=== PATIENT | male | born 1980 | race Hispanic/Latino ===

== ENCOUNTER 2017-05-11 03:48 | Emergency (ER) | payer BC ==
[~2017-05-11] VITALS: Ht 185.4 cm; Wt 144.2 kg
[~2017-05-11 03:48] MED LIST: ASPIRIN325 MG PO; LISINOPRIL10 MG PO; METFORMIN HCL500 MG PO
[2017-05-11] MEDS ORDERED: ONDANSETRON HCL INJ 2 MG/ML VIAL IV STA (04:03)
[2017-05-11 04:14] LABS: BASOPHILS # (AUTO) 0.1 (0.0-0.1); BASOPHILS % 1.3 % (0.0-1.0); EOSINOPHILS # (AUTO) 0.1 (0.0-0.4); EOSINOPHILS % 0.8 % (0.0-6.0); HEMATOCRIT 43.2 % (38.2-49.6); HEMOGLOBIN 15.2 g/dL (14.0-18.0); LYMPHOCYTES # (AUTO) 5.2 (1.0-3.2); LYMPHOCYTES % 48.9 % (18.0-39.1); MEAN CORPUSCULAR HEMOGLOBIN 29.9 pg (28-32); MEAN CORPUSCULAR HGB CONC 35.2 g/dL (31-35); MEAN CORPUSCULAR VOLUME 84.9 fL (81-99); MONOCYTES # (AUTO) 0.6 (0.2-0.8); MONOCYTES % 5.6 % (4.4-11.3); NEUTROPHILS # (AUTO) 4.6 (2.1-6.9); NEUTROPHILS % 43.1 % (38.7-80.0); PLATELET COUNT 168 x10e3/uL (140-360); RED BLOOD COUNT 5.09 x10e6/uL (4.3-5.7); RED CELL DISTRIBUTION WIDTH 13.9 % (11.7-14.4)
[2017-05-11] MEDS ORDERED: SODIUM CHLORIDE 0.9% 1000ML 1,000 ML IV ONE ×2 (04:15→06:00)
[2017-05-11] MEDS ORDERED: ACETAMINOPHEN 325 MG TAB PO ONE (04:15)
[2017-05-11 04:27] LABS: EOSINOPHILS % (MANUAL) 1 % (0-7); LYMPHOCYTES % (MANUAL) 45 % (19-48); MONOCYTES % (MANUAL) 4 % (3.4-9.0); NEUTROPHILS % (MANUAL) 50 % (40-74); PLATELET ESTIMATE ADEQUATE; PLATELET MORPHOLOGY COMMENT NORMAL; RBC MORPHOLOGY COMMENT NORMAL
[2017-05-11 04:33] LABS: ALANINE AMINOTRANSFERASE 61 IU/L (0-55); ALBUMIN 3.3 g/dL (3.5-5.0); ALBUMIN/GLOBULIN RATIO 0.8 (0.8-2.0); ALKALINE PHOSPHATASE 97 IU/L (40-150); ANION GAP 13.3 mmol/L (8-16); BLOOD UREA NITROGEN 11 mg/dL (7-26); BUN/CREATININE RATIO 9 (6-25); CALCIUM 8.4 mg/dL (8.4-10.2); CARBON DIOXIDE 20 mmol/L (22-29); CHLORIDE 101 mmol/L (98-107); EST GLOMERULAR FILTRATION RATE > 60 ML/MIN (60-); GLUCOSE 287 mg/dL (74-118); POTASSIUM 4.3 mmol/L (3.5-5.1); SODIUM 130 mmol/L (136-145)
[2017-05-11 04:42] LABS: KETONES,URINE NEGATIVE (NEGATIVE); LEUKOCYTE ESTERASE ,URINE TRACE (NEGATIVE); NITRITE,URINE NEGATIVE (NEGATIVE); URINE UROBILINOGEN 0.2 mg/dL (0.2 - 1)
[2017-05-11 04:43] LABS: BILIRUBIN,URINE 1+ (NEGATIVE); CLARITY,URINE CLEAR (CLEAR); COLOR,URINE AMBER (YELLOW); PROTEIN,URINE DIPSTICK 1+ (NEGATIVE)
[2017-05-11 04:51] LABS: BACTERIA,URINE FEW /HPF; EPITHELIAL CELLS,URINE FEW /LPF; RBC,URINE 0-5 /HPF (0-5)
--- NOTE | 2017-05-11 04:54 | Diagnostic Imaging Report ---
CHEST 2 VIEWS, Technique: CHEST 2 VIEWS Comparison: None Clinical history: Fever DISCUSSION: Unremarkable appearance of the heart, mediastinum, lungs and pleural spaces. IMPRESSION: No acute abnormality. Signed by: Dr Mikki Faulkner MD on 05/11/2017 4:51 AM
== END 2017-05-11 07:15 | disposition home or self-care (01) ==
LOC: ER 03:48
DX: R50.9 Fever, unspecified (principal); R05 Cough; R11.2 Nausea with vomiting, unspecified; J00 Acute nasopharyngitis [common cold]; N30.00 Acute cystitis without hematuria; Z86.73 Personal history of transient ischemic attack (TIA), and cerebral infarction without residual deficits; Z87.01 Personal history of pneumonia (recurrent)
CPT/HCPCS: 36415; 71020; 80053; 81001; 85025; 87400; 99284; J2405; J7030

== ENCOUNTER 2021-12-27 09:46 | Inpatient (IN) | payer BC ==
[~2021-12-27] VITALS: Ht 185.4 cm; Wt 131.5 kg
[2021-12-27] MEDS ORDERED: SODIUM CHLORIDE 0.9% 1000ML 1,000 ML IV STA (09:54)
[2021-12-27 10:05] LABS: BASOPHILS % 0.4 % (0.0-1.0); EOSINOPHILS # (AUTO) 0.2 (0.0-0.4); EOSINOPHILS % 1.9 % (0.0-6.0); HEMATOCRIT 42.9 % (38.2-49.6); HEMOGLOBIN 14.8 g/dL (14.0-18.0); LYMPHOCYTES # (AUTO) 2.3 (1.0-3.2); LYMPHOCYTES % 24.3 % (18.0-39.1); MEAN CORPUSCULAR HEMOGLOBIN 29.2 pg (28-32); MEAN CORPUSCULAR HGB CONC 34.5 g/dL (31-35); MEAN CORPUSCULAR VOLUME 84.8 fL (81-99); MONOCYTES # (AUTO) 0.6 (0.2-0.8); MONOCYTES % 5.9 % (4.4-11.3); NEUTROPHILS # (AUTO) 6.4 (2.1-6.9); NEUTROPHILS % 67.3 % (38.7-80.0); PLATELET COUNT 239 x10e3/uL (140-360); RED BLOOD COUNT 5.06 x10e6/uL (4.3-5.7); RED CELL DISTRIBUTION WIDTH 13.2 % (11.7-14.4)
[2021-12-27 10:17] LABS: ALANINE AMINOTRANSFERASE 49 IU/L (0-55); ALBUMIN 3.8 g/dL (3.5-5.0); ALBUMIN/GLOBULIN RATIO 0.8 (0.8-2.0); ALKALINE PHOSPHATASE 136 IU/L (40-150); ANION GAP 14.9 mmol/L (8-16); BLOOD UREA NITROGEN 51 mg/dL (7-26); BUN/CREATININE RATIO 14 (6-25); CALCIUM 9.7 mg/dL (8.4-10.2); CARBON DIOXIDE 19 mmol/L (22-29); CHLORIDE 103 mmol/L (98-107); CREATINE KINASE 133 IU/L (30-200); MAGNESIUM 1.8 MG/DL (1.3-2.1); POTASSIUM 4.9 mmol/L (3.5-5.1); SODIUM 132 mmol/L (136-145)
[2021-12-27 10:20] LABS: GLUCOSE 407 mg/dL (74-118)
[2021-12-27 10:23] LABS: INR 0.85; PROTHROMBIN TIME 12.4 seconds (11.9-14.5)
[2021-12-27 10:24] LABS: PARTIAL THROMBOPLASTIN TIME 27.3 seconds (23.8-35.5)
[2021-12-27] MEDS ORDERED: INSULIN LISPRO 100 UNIT/1 ML 3ML VIAL SQ ONE (10:45)
[2021-12-27 11:31] LABS: COLOR,URINE YELLOW (YELLOW)
[2021-12-27 11:32] LABS: CLARITY,URINE CLEAR (CLEAR); KETONES,URINE NEGATIVE (NEGATIVE); LEUKOCYTE ESTERASE ,URINE NEGATIVE (NEGATIVE); NITRITE,URINE NEGATIVE (NEGATIVE); PROTEIN,URINE DIPSTICK NEGATIVE (NEGATIVE); URINE UROBILINOGEN 0.2 mg/dL (0.2 - 1)
[2021-12-27] MEDS ORDERED: ASPIRIN 81 MG CHEW TAB PO STA (11:43)
[2021-12-27] MEDS ORDERED: ONDANSETRON HCL INJ 2MG/ML 2ML 2 MG/ML VIAL IV PRN (11:45)
[2021-12-27] MEDS ORDERED: DEXTROSE 50% SYRINGE 50 ML IV PRN (11:45)
[2021-12-27 11:55] LABS: EPITHELIAL CELLS,URINE FEW /LPF
[2021-12-27 11:56] LABS: RBC,URINE 0-5 /HPF (0-5); WBC,URINE (MAN) 0-5 /HPF (0-5)
[2021-12-27 11:57] LABS: BACTERIA,URINE MODERATE /HPF
[2021-12-27] MEDS: INSULIN LISPRO 100 UNIT/1 ML 3ML VIAL SQ SCH ×3 (12:00→21:00)
[2021-12-27] MEDS: SODIUM CHLORIDE 0.9% 1000ML 1,000 ML IV SCH ×2 (12:08→16:57)
[2021-12-27] MEDS: FAMOTIDINE 20 MG/2 ML VIAL IV SCH ×2 (12:08→20:51)
[2021-12-27 15:57] VITALS: BP 122/82
[2021-12-27 16:00] VITALS: BP 122/82
[2021-12-27 16:52] LABS: CREATINE KINASE 94 IU/L (30-200)
[2021-12-27 17:45] VITALS: BP 122/82
[2021-12-27 19:56] VITALS: BP 116/82
[2021-12-27 20:03] LABS: ANION GAP 14.7 mmol/L (8-16); CALCIUM 8.8 mg/dL (8.4-10.2); CREATININE, SERUM 2.58 mg/dL (0.72-1.25); POTASSIUM 4.7 mmol/L (3.5-5.1)
[2021-12-28] VITALS (7 sets, daily range): BP systolic 89–134; BP diastolic 62–79
[2021-12-28 02:26] LABS: CREATINE KINASE 69 IU/L (30-200)
[2021-12-28 05:04] LABS: BASOPHILS % 0.6 % (0.0-1.0); EOSINOPHILS # (AUTO) 0.3 (0.0-0.4); EOSINOPHILS % 3.7 % (0.0-6.0); HEMATOCRIT 37.3 % (38.2-49.6); LYMPHOCYTES # (AUTO) 1.9 (1.0-3.2); MEAN CORPUSCULAR HEMOGLOBIN 29.9 pg (28-32); MEAN CORPUSCULAR HGB CONC 34.9 g/dL (31-35); MEAN CORPUSCULAR VOLUME 85.7 fL (81-99); MONOCYTES # (AUTO) 0.4 (0.2-0.8); MONOCYTES % 5.5 % (4.4-11.3); NEUTROPHILS # (AUTO) 4.5 (2.1-6.9); NEUTROPHILS % 62.8 % (38.7-80.0); PLATELET COUNT 186 x10e3/uL (140-360); RED BLOOD COUNT 4.35 x10e6/uL (4.3-5.7); RED CELL DISTRIBUTION WIDTH 13.8 % (11.7-14.4)
[2021-12-28 05:22] LABS: ALBUMIN/GLOBULIN RATIO 0.8 (0.8-2.0); ANION GAP 9.8 mmol/L (8-16); CHOL/HDL RATIO 5.5 (3.9-4.7); CREATININE, SERUM 2.38 mg/dL (0.72-1.25); POTASSIUM 4.8 mmol/L (3.5-5.1)
[2021-12-28] MEDS: ACETAMINOPHEN 325 MG TAB PO PRN ×2 (07:57→20:30)
[2021-12-28] MEDS: INSULIN LISPRO 100 UNIT/1 ML 3ML VIAL SQ SCH ×4 (08:30→23:08)
[2021-12-28] MEDS ORDERED: ASPIRIN 81 MG ENTERIC COATED PO SCH (09:00)
[2021-12-28 09:42] LABS: CREATINE KINASE 65 IU/L (30-200)
[2021-12-28] MEDS: SODIUM CHLORIDE 0.9% 1000ML 1,000 ML IV SCH ×2 (10:04→17:45)
[2021-12-28] MEDS: ASPIRIN 325 MG TAB PO SCH (10:04)
[2021-12-28] MEDS ORDERED: ATORVASTATIN 10 MG TAB PO SCH (21:00)
[2021-12-29] VITALS (8 sets, daily range): BP systolic 103–126; BP diastolic 69–88
[2021-12-29] MEDS: ACETAMINOPHEN 325 MG TAB PO PRN (04:34)
[2021-12-29 04:50] LABS: BASOPHILS % 0.3 % (0.0-1.0); EOSINOPHILS # (AUTO) 0.2 (0.0-0.4); EOSINOPHILS % 4.1 % (0.0-6.0); HEMOGLOBIN 13.6 g/dL (14.0-18.0); LYMPHOCYTES # (AUTO) 1.6 (1.0-3.2); LYMPHOCYTES % 28.3 % (18.0-39.1); MEAN CORPUSCULAR HEMOGLOBIN 29.7 pg (28-32); MEAN CORPUSCULAR VOLUME 87.3 fL (81-99); MONOCYTES # (AUTO) 0.4 (0.2-0.8); MONOCYTES % 6.2 % (4.4-11.3); NEUTROPHILS # (AUTO) 3.5 (2.1-6.9); NEUTROPHILS % 60.9 % (38.7-80.0); PLATELET COUNT 194 x10e3/uL (140-360); RED BLOOD COUNT 4.58 x10e6/uL (4.3-5.7); RED CELL DISTRIBUTION WIDTH 13.2 % (11.7-14.4)
[2021-12-29 05:15] LABS: ANION GAP 11.7 mmol/L (8-16); CALCIUM 8.4 mg/dL (8.4-10.2); CREATININE, SERUM 1.61 mg/dL (0.72-1.25); POTASSIUM 4.7 mmol/L (3.5-5.1)
[2021-12-29] MEDS: INSULIN LISPRO 100 UNIT/1 ML 3ML VIAL SQ SCH ×4 (08:30→21:00)
[2021-12-29] MEDS: FAMOTIDINE 20 MG/2 ML VIAL IV SCH (09:00)
[2021-12-29] MEDS: ASPIRIN 325 MG TAB PO SCH (09:00)
[2021-12-29] MEDS ORDERED: ONDANSETRON HCL 4 MG ORAL DISINTEGRATING TAB PO PRN (09:15)
[2021-12-30] VITALS: BP 131/80
[2021-12-30 04:00] VITALS: BP 114/72
[2021-12-30 04:46] LABS: BASOPHILS % 0.4 % (0.0-1.0); EOSINOPHILS # (AUTO) 0.3 (0.0-0.4); EOSINOPHILS % 4.2 % (0.0-6.0); HEMATOCRIT 37.2 % (38.2-49.6); HEMOGLOBIN 13.2 g/dL (14.0-18.0); LYMPHOCYTES # (AUTO) 2.5 (1.0-3.2); LYMPHOCYTES % 35.9 % (18.0-39.1); MEAN CORPUSCULAR HEMOGLOBIN 29.7 pg (28-32); MEAN CORPUSCULAR HGB CONC 35.5 g/dL (31-35); MEAN CORPUSCULAR VOLUME 83.8 fL (81-99); MONOCYTES # (AUTO) 0.5 (0.2-0.8); MONOCYTES % 6.5 % (4.4-11.3); NEUTROPHILS # (AUTO) 3.7 (2.1-6.9); NEUTROPHILS % 52.6 % (38.7-80.0); PLATELET COUNT 189 x10e3/uL (140-360); RED BLOOD COUNT 4.44 x10e6/uL (4.3-5.7); RED CELL DISTRIBUTION WIDTH 12.9 % (11.7-14.4)
[2021-12-30 05:07] LABS: ANION GAP 11.6 mmol/L (8-16); CALCIUM 8.4 mg/dL (8.4-10.2); CREATININE, SERUM 1.79 mg/dL (0.72-1.25); POTASSIUM 4.6 mmol/L (3.5-5.1)
[2021-12-30 07:51] VITALS: BP 110/82
[2021-12-30 08:00] VITALS: BP 110/82
[2021-12-30] MEDS: INSULIN LISPRO 100 UNIT/1 ML 3ML VIAL SQ SCH ×3 (08:00→15:55)
[2021-12-30] MEDS: FAMOTIDINE 20 MG/2 ML VIAL IV SCH (08:35)
[2021-12-30] MEDS: ASPIRIN 325 MG TAB PO SCH (08:35)
[2021-12-30 12:22] VITALS: BP 131/85
[2021-12-30 15:22] VITALS: BP 118/85
[2021-12-30] MEDS ORDERED: TRADJENTA5 MG PO (17:21)
[2021-12-30] MEDS ORDERED: METFORMIN HCL500 MG PO (17:21)
[2021-12-31] MEDS ORDERED: FAMOTIDINE 20 MG TAB PO SCH (07:30)
== END 2021-12-30 18:00 | disposition home or self-care (01) | DRG 683 ==
LOC: ER 10:00 → ERHOLD 11:49 → INTOOBSV 11:49 → MED/SURG 16:06 → OBSVTOIN 12-29 18:49
PROVIDERS: ADMIT Internal Medicine; ATTEND Internal Medicine
DX: N17.9 Acute kidney failure, unspecified (principal); E87.1 Hypo-osmolality and hyponatremia; I13.0 Hypertensive heart and chronic kidney disease with heart failure and stage 1 through stage 4 chronic kidney disease, or unspecified chronic kidney disease; E11.69 Type 2 diabetes mellitus with other specified complication; E78.5 Hyperlipidemia, unspecified; Z90.5 Acquired absence of kidney; Z08 Encounter for follow-up examination after completed treatment for malignant neoplasm; Z85.528 Personal history of other malignant neoplasm of kidney; E11.22 Type 2 diabetes mellitus with diabetic chronic kidney disease; E11.65 Type 2 diabetes mellitus with hyperglycemia; I50.9 Heart failure, unspecified; N18.30 Chronic kidney disease, stage 3 unspecified; Z88.5 Allergy status to narcotic agent; E86.0 Dehydration; Z20.822 Contact with and (suspected) exposure to COVID-19
CPT/HCPCS: 36415; 70450; 71045; 74176; 76770; 80048; 80053; 80061; 81001; 82550; 82553; 82948; 83036; 83735; 83880; 84484; 85025; 85379; 85610; 85730; 87086; 93005; 94799; 99285; G0378; J7030